=== PATIENT | male | born 1990 | race Caucasian/White ===

== ENCOUNTER 2017-07-29 09:59 | Emergency (ER) | payer BC, OTHER ==
--- NOTE | 2017-07-29 10:38 | ER Document Report ---
ED General - General Chief Complaint: Back Pain Stated Complaint: BACK PAIN Time Seen by Provider: 07/29/17 10:35 Mode of Arrival: Ambulatory Notes: Patient is a 26-year-old male who presents with right-sided back spasms that started yesterday. He states he was jumping on a trampoline when to do one large jump and then fell his back started to spasm. He tried a muscle relaxer last night, he believes it was Flexeril, but states it did not improve his pain. He does state that he has a history of chronic opioid abuse and is on a medication that prevents him from taking opioids. He states he does not want any of those today. He denies any fever, chills, anesthesias, unilateral weakness, bowel or bladder incontinence, dysuria, hematuria, saddle paresthesias. He is ambulatory but grimaces occasionally. TRAVEL OUTSIDE OF THE [place] IN LAST 30 DAYS: No - Related Data Allergies/Adverse Reactions: amoxicillin Allergy (Verified 05/13/16 10:51) rash Past Medical History - General Information source: Patient - Social History Smoking Status: Current Every Day Smoker Family History: Reviewed & Not Pertinent GI Medical History: Reports: Hx Hepatitis - C Skin Medical History: Reports Hx MRSA Psychiatric Medical History: Reports: Hx Depression - Anxiety, PTSD Infectious Medical History: Reports: Hx Hepatitis - C - Immunizations Hx Diphtheria, Pertussis, Tetanus Vaccination: Yes Review of Systems - Review of Systems Constitutional: See HPI EENT: No symptoms reported Cardiovascular: No symptoms reported Respiratory: No symptoms reported Gastrointestinal: No symptoms reported Genitourinary: No symptoms reported Male Genitourinary: No symptoms reported Musculoskeletal: See HPI Skin: No symptoms reported Hematologic/Lymphatic: No symptoms reported Neurological/Psychological: No symptoms reported Physical Exam - Vital signs Vitals: Temp Pulse Resp BP Pulse Ox 98.3 F 99 20 117/64 97 07/29/17 10:14 07/29/17 10:14 07/29/17 10:14 07/29/17 10:14 07/29/17 10:14 - Notes Notes: PHYSICAL EXAM: CONSTITUTIONAL: Alert and oriented, well-appearing and in no acute distress. HENT: Normocephalic, atraumatic. Trachea midline. Uvula midline. Moist mucous membranes. EYES: Pupils equal round and reactive to light, EOM intact. Sclera anicteric, conjunctiva are normal. No entrapment. NECK: supple without lymphadenopathy. No midline tenderness or paraspinous muscle spasms. No step-offs or deformities. ROM intact. No meningeal signs. HEART: Regular rate and rhythm without murmurs. LUNGS: CTAB and equal. No wheezes, rales or rhonchi. GI: Normactive bowel sounds. Nontender, non-distended. No organomegaly. no CVAT. BACK: Tender to palpation to right paralumbar musculature with significant spasms, no midline tenderness, 5+/5 strengths, DTRs 2+, SLR -. EXTREMITIES: Normal range of motion, no pitting edema. No cyanosis. Cap Refill < 3 seconds. NEURO: Cranial nerves grossly intact. Normal sensory/motor exams. PSYCH: Normal mood, normal affect. SKIN: Warm and dry. Normal turgor. No rashes or lesions noted. Course - Re-evaluation Re-evalutation: 07/29/17 10:37 Patient seen and examined. Well-appearing, nontoxic. No neuro deficits on exam. Exam consistent with muscle spasms, no midline bony tenderness so will defer imaging at this time. Low suspicion at this time for meningitis, epidural abscess, cauda equina syndrome, spinal cord compression or other emergent medical condition. Will treat with anti-inflammatories and Robaxin, given first dose here. At this time, will discharge with return precautions and follow-up recommendations. Verbal discharge instructions given at the bedside and opportunity for questions given. Medication warnings reviewed. Patient is in agreement with this plan and has verbalized understanding of return precautions and the need for primary care follow-up in the next 24-72 hours. - Vital Signs Vital signs: Temp Pulse Resp BP Pulse Ox 98.3 F 99 20 117/64 97 07/29/17 10:14 07/29/17 10:14 07/29/17 10:14 07/29/17 10:14 07/29/17 10:14 Discharge - Discharge Clinical Impression: Back muscle spasm Condition: Stable Disposition: HOME, SELF-CARE Additional Instructions: Myalagia (Muscle Pain) Myalgia is pain in the muscles. We use the word myalgia to describe muscle pain where there's no history of injury, no known muscle disease, and the muscles are normal to examination. Myalgias can be a symptom of an acute illness , such as influenza, hepatitis, or any viral illness, especially with fever. Sometimes the muscle pain comes before any other symptoms. Myalgia can also be an early symptom of inflammatory muscle disease, such as lupus. If myalgia is accompanied by an acute illness that explains the muscle pain , then no further testing needs to be done. When there's no clear reason for the pain, tests may be done to see if there's an inflammatory or other disease of the muscles. The usual treatment for myalgias is anti-inflammatory medication, such as ibuprofen. Muscle aches may be soothed with a heating pad or hot compress. If muscles remain painful for more than a few days, you'll need testing and followup. Return if a muscle becomes swollen, red, or severely painful. Muscle Relaxers Muscle relaxing medications are usually prescribed for acute muscle spasm or injury to the neck and back. They are often combined with antiinflammatory pain medication for increased relief. You may stop the muscle relaxer when the pain and stiffness have improved. Start the medication again if spasms recur. Muscle relaxers may cause drowsiness, especially with the first dose. Do not operate machinery or drive while under the effects of the medication. Most muscle relaxers last up to 24 hours. Do not combine the medication with alcohol. Follow up with your primary care doctor in one to two weeks. Prescriptions: Ketorolac Tromethamine [Toradol 10 mg Tablet] 10 mg PO Q8HP PRN #20 tablet PRN Reason: Methocarbamol [Robaxin 500 mg Tablet] 500 mg PO TID #20 tablet
[2017-07-29] MEDS ORDERED: KETOROLAC TROMETHAMINE 10 MG TABLET PO ONE (10:42)
[2017-07-29] MEDS ORDERED: METHOCARBAMOL 500 MG TABLET PO ONE (10:42)
[2017-07-29 11:20] VITALS: BP 110/60
== END 2017-07-29 11:20 | disposition home or self-care (01) ==
LOC: ER 09:59
DX: M62.830 Muscle spasm of back (principal); M54.9 Dorsalgia, unspecified; X58.XXXA Exposure to other specified factors, initial encounter; Y93.44 Activity, trampolining; Z79.899 Other long term (current) drug therapy; F17.200 Nicotine dependence, unspecified, uncomplicated
CPT/HCPCS: 99283; J3490

== ENCOUNTER 2017-08-13 10:15 | Emergency (ER) | payer OTHER ==
[2017-08-13 10:26] VITALS: BP 94/72
[2017-08-13] MEDS ORDERED: KETOROLAC TROMETHAMINE 60 MG/2 ML SDV IM ONE (11:36)
[2017-08-13] MEDS ORDERED: DEXAMETHASONE SOD PHOS INJ 10 MG/1 ML VIAL IM ONE (11:37)
[2017-08-13] MEDS ORDERED: DIAZEPAM INJ 10 MG/2 ML DISP.SYRIN IM ONE (11:38)
--- NOTE | 2017-08-13 11:47 | ER Document Report ---
ED Neck/Back Problem - General Chief Complaint: Back Pain Stated Complaint: BACK PAIN Time Seen by Provider: 08/13/17 11:15 Notes: 26 yo male presents to ED today c/o right mid/lower back pain x 2 weeks. pt originally hurt back while jumping on trampoline. pt was seen in ED for same, treated with Robaxin but has not improved. pt c/o persistant muscle pain with movement. denies any fever, paresthesia, radiculopathy, bowel/bladder dysfunction. pt is followed by [facility]. admits to opiod addiction and is receiving an injection that blocks opiate receptors TRAVEL OUTSIDE OF THE [place] IN LAST 30 DAYS: No - HPI Patient complains to provider of: Pain, Injury Onset: Other - 2 wks Timing: Constant Quality of pain: Achy Recent injury: Yes Associated symptoms: None. denies: Fever, Incontinence, Radiation to leg, Sensory loss, Unable to urinate Exacerbated by: Other - any movement Similar symptoms previously: Yes Recently seen / treated by doctor: Yes - Related Data Allergies/Adverse Reactions: amoxicillin Allergy (Verified 08/13/17 10:20) rash Past Medical History - General Information source: Patient - Social History Smoking Status: Current Every Day Smoker Frequency of alcohol use: None Drug Abuse: None Occupation: disabled vet Lives with: Family Family History: Reviewed & Not Pertinent Patient has suicidal ideation: No Patient has homicidal ideation: No Renal/ Medical History: Denies: Hx Peritoneal Dialysis GI Medical History: Reports: Hx Hepatitis - C Skin Medical History: Reports Hx MRSA Psychiatric Medical History: Reports: Hx Depression - Anxiety, PTSD Infectious Medical History: Reports: Hx Hepatitis - C - Immunizations Hx Diphtheria, Pertussis, Tetanus Vaccination: Yes Review of Systems - Review of Systems Constitutional: No symptoms reported EENT: No symptoms reported Cardiovascular: No symptoms reported Respiratory: No symptoms reported Gastrointestinal: No symptoms reported Genitourinary: No symptoms reported Male Genitourinary: No symptoms reported Musculoskeletal: See HPI, Back pain Skin: No symptoms reported Hematologic/Lymphatic: No symptoms reported Neurological/Psychological: No symptoms reported Physical Exam - Vital signs Vitals: Temp Pulse Resp BP Pulse Ox 97.7 F 91 20 94/72 L 99 08/13/17 10:25 08/13/17 10:25 08/13/17 10:25 08/13/17 10:25 08/13/17 10:25 Interpretation: Normal - General General appearance: Appears well, Alert - HEENT Head: Normocephalic, Atraumatic Eyes: Normal Pupils: PERRL - Respiratory Respiratory status: No respiratory distress Chest status: Nontender Breath sounds: Normal Chest palpation: Normal - Cardiovascular Rhythm: Regular Heart sounds: Normal auscultation Murmur: No - Abdominal Inspection: Normal Distension: No distension Bowel sounds: Normal Tenderness: Nontender Organomegaly: No organomegaly - Back Back: Tender - right lower thoracic paraspinal tenderness. no vertebral tenderness. - Extremities General upper extremity: Normal inspection, Nontender, Normal color, Normal ROM , Normal temperature General lower extremity: Normal inspection, Nontender, Normal color, Normal ROM , Normal temperature, Normal weight bearing. No: Radha's sign - Neurological Neuro grossly intact: Yes Cognition: Normal Orientation: AAOx4 James Coma Scale Eye Opening: Spontaneous [place] Coma Scale Verbal: Oriented [place] Coma Scale Motor: Obeys Commands James Coma Scale Total: 15 Speech: Normal Motor strength normal: LUE, RUE, LLE, RLE Sensory: Normal - Psychological Associated symptoms: Normal affect, Normal mood - Skin Skin Temperature: Warm Skin Moisture: Dry Skin Color: Normal Course - Re-evaluation Re-evalutation: 08/13/17 11:43 pt had focal muscular tenderness, no vertebral pain. no s/s spinal cord compression, cauda equina, infection, aneurysm or other serious etiology. pt is neurologically intact, independently and steadily ambulatory. given the extremely low risk of these diagnoses, further testing is not indicated. Toradol, Decadron and Valium IM given in ER. [facility] care[facility], [facility] return precautions discussed with patient. pt is stable for discharge and agreeable with plan. short course of oral steroids, muscle relaxant provided - Vital Signs Vital signs: Temp Pulse Resp BP Pulse Ox 97.7 F 91 20 94/72 L 99 08/13/17 10:25 08/13/17 10:25 08/13/17 10:25 08/13/17 10:25 08/13/17 10:25 Discharge - Discharge Clinical Impression: Back pain Qualifiers: Back pain location: thoracic back pain Chronicity: acute Back pain laterality: right Qualified Code(s): M54.6 - Pain in thoracic spine Condition: Stable Disposition: HOME, SELF-CARE Instructions: Ice Packs ([facility]), Warm Packs ([facility]), Low Back Pain ([facility]), Toradol Injection ([facility]), Steroid Medication Injection, Steroid Medication, Benzodiazepines ([facility]) Additional Instructions: Take medications as prescribed Follow up with your primary care for further evaluation and treatment of your back pain Prescriptions: Cyclobenzaprine HCl [Flexeril 10 Mg Tablet] 10 mg PO Q6H PRN #30 tablet PRN Reason: Prednisone [Deltasone 20 mg Tablet] 3 tab PO DAILY 5 Days tablet
[2017-08-13] MEDS ORDERED: LIDOCAINE 5% (700 MG) TRANSDERMAL ADH..PATCH TP ONE (11:51)
== END 2017-08-13 12:19 | disposition home or self-care (01) ==
LOC: ER 10:15
DX: M54.6 Pain in thoracic spine (principal); M54.5 Low back pain; Z79.899 Other long term (current) drug therapy; X58.XXXA Exposure to other specified factors, initial encounter; Y93.44 Activity, trampolining; F17.200 Nicotine dependence, unspecified, uncomplicated
CPT/HCPCS: 99283; 96372; J3360; J1885; J1100

== ENCOUNTER 2018-06-22 20:48 | Emergency (ER) | payer OTHER ==
[2018-06-22 21:14] VITALS: BP 111/62
[2018-06-22] MEDS ORDERED: IBUPROFEN 600 MG TABLET PO ONE (23:01)
[2018-06-22] MEDS ORDERED: AMOXICILLIN TRIHYDRATE 500 MG CAPSULE PO ONE (23:01)
[2018-06-22] MEDS ORDERED: AZITHROMYCIN 250 MG TABLET PO ONE (23:06)
--- NOTE | 2018-06-22 23:10 | ER Document Report ---
ED ENT - General Chief Complaint: Ear Pain Stated Complaint: RIGHT EAR PRESSURE Time Seen by Provider: 06/22/18 23:00 TRAVEL OUTSIDE OF THE [place] IN LAST 30 DAYS: No - HPI Notes: Patient is a 27-year-old male that presents to the emergency department for chief complaint of right ear pain. Patient started having right ear pain a few hours prior to arrival in the emergency room. He states it is throbbing and achy. He denies any aggravating or relieving factors. He did not take any medication at home. He states that he is having decreased hearing in the right ear as well. He denies any fevers, chills and headache. Past Medical History: Negative Past Surgical History: Back surgery Social History: History of opiate abuse. Denies alcohol. Daily tobacco. Family History: Reviewed and noncontributory for presenting illness Allergies: Reviewed, see documented allergy list. REVIEW OF SYSTEMS: CONSTITUTIONAL : No fever No chills No diaphoresis No recent illness EENT: Ear pain No vision changes No congestion No sore throat CARDIOVASCULAR: No chest pain No palpitations RESPIRATORY: No shortness of breath No cough No difficulty breathing GASTROINTESTINAL: No abdominal pain No nausea No vomiting No diarrhea GENITOURINARY: No dysuria No hematuria No difficulty urinating MUSCULOSKELETAL: No back pain No leg pain No arm pain SKIN: No rashes No lesions LYMPHATIC: No swollen, enlarged glands. NEUROLOGICAL: No lightheadedness No headache No weakness No paresthesias PSYCHIATRIC: No anxiety No depression PHYSICAL EXAMINATION: Vital signs reviewed, nursing noted reviewed. GENERAL: Well-appearing, well-nourished and in no acute distress. HEAD: Atraumatic, normocephalic. EYES: Eyes appear normal, extraocular movements intact, sclera anicteric, conjunctiva are normal. ENT: nares patent, oropharynx clear without exudates. Moist mucous membranes. Right TM erythema, bulging, middle ear effusion. Normal left TM. No mastoid tenderness bilaterally. NECK: Normal range of motion, supple without lymphadenopathy LUNGS: Breath sounds clear to auscultation bilaterally and equal. No wheezes rales or rhonchi. HEART: Regular rate and rhythm without murmurs ABDOMEN: Soft, nontender, normoactive bowel sounds. No rebound, guarding, or rigidity. No masses appreciated. EXTREMITIES: Nontender, good range of motion, no pitting or edema. NEUROLOGICAL: No focal neurological deficits. Moves all extremities spontaneously Motor and sensory grossly intact on exam. PSYCH: Normal mood, normal affect. SKIN: Warm, Dry, normal turgor, no rashes or lesions noted on exposed skin - Related Data Allergies/Adverse Reactions: amoxicillin Allergy (Verified 08/13/17 10:20) rash Past Medical History - Social History Smoking Status: Unknown if Ever Smoked Family History: Reviewed & Not Pertinent Patient has suicidal ideation: No Patient has homicidal ideation: No Renal/ Medical History: Denies: Hx Peritoneal Dialysis GI Medical History: Reports: Hx Hepatitis - C Skin Medical History: Reports Hx MRSA Psychiatric Medical History: Reports: Hx Depression - Anxiety, PTSD Infectious Medical History: Reports: Hx Hepatitis - C - Immunizations Hx Diphtheria, Pertussis, Tetanus Vaccination: Yes Physical Exam - Vital signs Vitals: Temp Pulse Resp BP Pulse Ox 98.1 F 72 16 111/62 97 06/22/18 21:12 06/22/18 21:12 06/22/18 21:12 06/22/18 21:12 06/22/18 21:12 Course - Re-evaluation Re-evalutation: 06/22/18 23:09 Vitals reviewed. Nursing notes reviewed. Patient has right otitis media that will be treated with antibiotics. He was discharged in stable condition. - Vital Signs Vital signs: Temp Pulse Resp BP Pulse Ox 98.1 F 72 16 111/62 97 06/22/18 21:12 06/22/18 21:12 06/22/18 21:12 06/22/18 21:12 06/22/18 21:12 Discharge - Discharge Clinical Impression: Otitis media Qualifiers: Otitis media type: unspecified Laterality: right Qualified Code(s): H66.91 - Otitis media, unspecified, right ear Condition: Stable Disposition: HOME, SELF-CARE Instructions: Otitis Media ([facility]) Additional Instructions: Please return to the emergency department if you have any worsening, or concern of your symptoms. Please return to the emergency department if you develop chest pain, difficulty breathing, severe abdominal pain, or ongoing vomiting. Please follow-up with your primary care physician in 2-3 days and any other recommended physicians. If prescribed, take all medications as directed. If you have any questions or concerns do not hesitate to return the emergency department for evaluation. [] Prescriptions: Azithromycin [Zithromax 250 mg Tablet] 250 mg PO DAILY #4 tablet Cefdinir 300 mg PO BID #14 capsule Referrals: [facility] [Provider Group] - Follow up as needed
== END 2018-06-22 23:42 | disposition home or self-care (01) ==
LOC: ER 20:48
DX: H66.91 Otitis media, unspecified, right ear (principal); Z86.19 Personal history of other infectious and parasitic diseases; Z86.14 Personal history of Methicillin resistant Staphylococcus aureus infection; Z88.0 Allergy status to penicillin
CPT/HCPCS: 99283